=== PATIENT | female | born 1980 | race Caucasian/White ===

== ENCOUNTER 2017-02-16 16:09 | Emergency (ER) | payer OTHER ==
[~2017-02-16] VITALS: Ht 172.7 cm; Wt 120.3 kg
[2017-02-16 16:12] VITALS: BP 150/101; TEMP 36.9; Ht 172.7 cm; Wt 120.3 kg
[2017-02-16] MEDS ORDERED: FURO-85 PO (16:27)
[2017-02-16] MEDS ORDERED: PHEN10CA3 PO (16:27)
[2017-02-16] MEDS ORDERED: XYLOCAINE 1%/SOD BICARB 20 ML VIAL INFIL ONE (16:32)
[2017-02-16] MEDS ORDERED: DIPHTHERIA/TETANUS/PERTUSSIS 0.5 ML SYR/VIAL IM. ONE (16:45)
--- NOTE | 2017-02-16 16:57 | EMERGENCY ROOM VISIT NOTE ---
ED Visit Note First contact with patient: 16:19 CHIEF COMPLAINT: Left hand laceration at work this afternoon HISTORY OF PRESENT ILLNESS: Patient is a [id number] 36-year-old white female presents to the emergency department for evaluation of a left hand laceration. She states that a glass tray at work exploded, and she was struck with a glass piece on the dorsum of her left hand, causing the laceration described below. Bleeding was controlled with pressure. She denies any pain. No foreign body sensation. No weakness or numbness of the hand or fingers. REVIEW OF SYSTEMS: Review of systems as per HPI. All other systems reviewed were negative. At least 6 systems reviewed. PMH: Electronic medical records are reviewed and summarized as above/below. See Problem List. Her tetanus is not up-to-date. SOCIAL HISTORY: Patient lives at home with her and family. PHYSICAL EXAM: Vital Signs: Reviewed Nurse's notes. There is a 2 cm long laceration on the dorsum of the left hand, over the mid second metacarpal shaft. The edges are gaping widely apart. There is no foreign material in the wound and it looks clean. There is no active bleeding. No deep structures such as tendons or nerves are seen in the base of the wound. Extension and flexion of the fingers is full and strong. Sensation to pain and light touch is intact. EMERGENCY DEPARTMENT COURSE: Tetanus is updated. X-rays of the left hand were obtained. There is no evidence for foreign body. Using sterile technique, saline and Betadine cleansing, and 1% lidocaine anesthesia, the laceration was irrigated with saline and explored thoroughly. There is no evidence for foreign body. Wound was repaired with 4, 5-0 nylon sutures. I do not suspect retained foreign body. The patient has no evidence for extensor tendon injury. LEFT HAND MIN 3 VIEWS ROUTINE CLINICAL HISTORY: LAC DORSAL L HAND, POSSIBLE FX trauma. Pain. COMPARISON: None. DISCUSSION: The bones and joint spaces appear intact. There is no evidence of fracture, dislocation or bony disease. Mild soft tissue edema dorsally IMPRESSION: Soft tissue edema. No acute bony abnormality. Current/Historical Medications Scheduled Phentermine Hcl (Adipex P), 37.5 MG PO UD Scheduled PRN Furosemide (Lasix), 20 MG PO BID PRN for Fluid Retention Vital Signs Date Time Temp Pulse Resp B/P Pulse Ox O2 Delivery O2 Flow Rate FiO2 02/16/17 17:45 85 18 97 02/16/17 16:12 36.9 99 17 150/101 100 Room Air Medications Administered Medications (Trade) Dose Ordered Sig/Saige Route Start Time Stop Time Status Last Admin Dose Admin Diphtheria/ Pertussis/Tetanus Vacc (Adacel Inj) 0.5 ml ONCE ONCE IM. 02/16/17 16:45 02/16/17 16:46 DC 02/16/17 17:00 0.5 ML Departure Information Impression Primary Impression: Laceration of left hand Additional Impression: Work related injury Referrals Bryant Horn D.O. (PCP) Patient Instructions My [facility] Additional Instructions Keep wound clean and dry. Do not allow any crusting or dried blood to accumulate on sutures. If this occurs, use a 1:1 solution of hydrogen peroxide/ water on a Q-tip to clean the wound. Use an antibiotic ointment for 3-4 days, then let wound dry. Suture removal in 10-12 days. Return sooner for any signs of infection (increasing redness, swelling, drainage). Ice and elevate for swelling and pain. Ibuprofen 600 mg and Tylenol 1000 mg every 6 hrs for pain. Problem Qualifiers
--- NOTE | 2017-02-16 17:00 | DIAGNOSTIC IMAGING REPORT ---
LEFT HAND MIN 3 VIEWS ROUTINE CLINICAL HISTORY: LAC DORSAL L HAND, POSSIBLE FX trauma. Pain. COMPARISON: None. DISCUSSION: The bones and joint spaces appear intact. There is no evidence of fracture, dislocation or bony disease. Mild soft tissue edema dorsally IMPRESSION: Soft tissue edema. No acute bony abnormality. Electronically signed by: Juan Leonardo M.D. 02/16/2017 4:59 PM Dictated Date/Time: 02/16/2017 4:58 PM
[2017-02-16 17:45] VITALS: PULSE 85; O2SAT 97
== END 2017-02-16 17:46 | disposition home or self-care (01) ==
LOC: C.EDB 16:11 → C.EDD 17:46
DX: S61.412A Laceration without foreign body of left hand, initial encounter (principal); W45.8XXA Other foreign body or object entering through skin, initial encounter; Y92.89 Other specified places as the place of occurrence of the external cause; Y99.0 Civilian activity done for income or pay

== ENCOUNTER 2017-02-25 14:24 | Emergency (ER) | payer OTHER ==
[~2017-02-25] VITALS: Ht 172.7 cm; Wt 102.1 kg
[~2017-02-25 14:24] MED LIST: FURO-85 PO; PHEN10CA3 PO
[2017-02-25 14:27] VITALS: TEMP 37.3; Ht 172.7 cm; Wt 102.1 kg
--- NOTE | 2017-02-25 14:54 | EMERGENCY ROOM VISIT NOTE ---
ED Visit Note First contact with patient: 14:30 CHIEF COMPLAINT: Suture removal left hand HISTORY of present illness: This patient returns to the ED today for removal of sutures that were placed 9 days ago into the left hand. There has been no swelling, redness, or drainage from the wound. The patient feels like the laceration is healing well. REVIEW OF SYSTEMS: Head: No headache, injury or neck pain. Skin: No rash, new lesions, or masses. General: No fever or chills, fatigue, loss of appetite , or significant recent weight gain or loss. PMH: The patient is healthy; EMR was reviewed. See chronic problem list SOCIAL HISTORY: Patient lives at home. PHYSICAL EXAM: Vital Signs: Were reviewed Reviewed Nurse's notes. GENERAL: 36- year-old white female appears in no acute distress. MENTAL Status: Alert and oriented 3. LEFT HAND: There is a sutured wound on the dorsal aspect with no signs of infection. There is no erythema, swelling, or tenderness. EMERGENCY DEPARTMENT COURSE: The sutures were removed without any difficulty and there was no separation of the wound edges. DIAGNOSIS: Healing left hand laceration and suture removal DISCHARGE INSTRUCTIONS AND TREATMENT: Wash any remaining crusts off of the wound today and resume your normal activities. Current/Historical Medications Scheduled Phentermine Hcl (Adipex P), 37.5 MG PO UD Scheduled PRN Furosemide (Lasix), 20 MG PO BID PRN for Fluid Retention Allergies Coded Allergies: No Known Allergies (Unverified , 02/25/17) Vital Signs Date Time Temp Pulse Resp B/P Pulse Ox O2 Delivery O2 Flow Rate FiO2 02/25/17 14:27 37.3 86 18 135/91 99 Room Air Departure Information Referrals Bryant Horn D.O. (PCP) Patient Instructions My [facility]
[2017-02-25 14:55] VITALS: BP 135/91; PULSE 86; O2SAT 99
== END 2017-02-25 14:55 | disposition home or self-care (01) ==
LOC: C.EDB 14:25 → C.EDD 14:55
DX: S61.412D Laceration without foreign body of left hand, subsequent encounter (principal); X58.XXXD Exposure to other specified factors, subsequent encounter